=== PATIENT | female | born 1960 | race Caucasian/White ===

== ENCOUNTER 2020-06-13 12:04 | Inpatient (IN) | payer OTHER ==
[2020-06-13 13:26] LABS: BASO % 0.7 % (0-2.0); EOS % 0.1 % (0-4.5); HEMOGLOBIN 13.9 GM/dl (10.7-15.3); LYMPH % 6.9 % (8-40); MCH 31.8 pg (25.7-33.7); MCHC 33.2 g/dl (32.0-36.0); MEAN CELL VOLUME 95.8 fl (80-96); MEAN PLT VOLUME 8.2 fl (7.5-11.1); MONO % 3.3 % (3.8-10.2); PLATELET COUNT 342 K/MM3 (134-434); RBC 4.39 M/mm3 (3.60-5.2); RDW 13.4 % (11.6-15.6); WHITE BLOOD COUNT 11.4 K/mm3 (4.0-10.8)
[2020-06-13 13:32] LABS: ACTIVATED PTT 29.2 SECONDS (25.2-36.5)
[2020-06-13 13:37] LABS: ALBUMIN 4.2 g/dl (3.4-5.0); BILIRUBIN,TOTAL 0.6 mg/dl (0.2-1); CALCIUM 8.9 mg/dl (8.5-10); CREATININE 0.6 mg/dl (0.55-1.3); INR 1.07 (0.82-1.09); POTASSIUM 3.6 mmol/L (3.5-5.1); PROTHROMBIN TIME (PATIENT) 11.9 SEC (10.2-13.0); TOT PROT 6.8 g/dl (6.4-8.2)
[2020-06-13 14:54] LABS: VENOUS BASE EXCESS 0.7 mmol/L (-2-2); VENOUS O2 SATURATION 52.6 % (70-80); VENOUS PCO2 46.4 mmHg (38-52); VENOUS PH 7.373 (7.310-7.410)
[2020-06-13 15:09] LABS: URINE BENZODIAZEPINES NEGATIVE ng/ml (CUTOFF=200)
[2020-06-13 15:10] LABS: METHADONE, UR NEGATIVE ng/ml (CUTOFF=300); OPIATES, URI NEGATIVE ng/ml (CUTOFF=300); PHENCYCLIDINE,URINE NEGATIVE ng/ml (CUTOFF=25)
[2020-06-13 15:11] LABS: COCAINE, UR NEGATIVE ng/ml (CUTOFF=300); URINE AMPHETAMINES NEGATIVE ng/ml (CUTOFF=500); URINE BARBITURATES NEGATIVE ng/ml (CUTOFF=200)
[2020-06-13] MEDS ORDERED: ACETAMINOPHEN 325 MG TABLET (FP) PO ONE (15:15)
[2020-06-13] MEDS ORDERED: ACETAMINOPHEN 325 MG TABLET (FP) ONE (15:17)
[2020-06-13 15:21] LABS: URINE APPEARANCE CLEAR; URINE BILIRUBIN NEGATIVE (NEGATIVE); URINE COLOR YELLOW; URINE GLUCOSE (UA) NEGATIVE (NEGATIVE); URINE KETONE NEGATIVE (NEGATIVE); URINE LEUK ESTERASE NEGATIVE (NEGATIVE); URINE NITRITE NEGATIVE (NEGATIVE); URINE PROTEIN NEGATIVE (NEGATIVE); URINE UROBILINOGEN 0.2 mg/dL (0.2-1.0)
[2020-06-13 19:16] VITALS: BMI 24.4
[2020-06-13] MEDS ORDERED: ACETAMINOPHEN 325 MG TABLET (FP) PO PRN (21:00)
[2020-06-14 08:07] LABS: BASO % 1.7 % (0-2.0); EOS % 0.6 % (0-4.5); HEMATOCRIT 40.3 % (32.4-45.2); HEMOGLOBIN 13.2 GM/dl (10.7-15.3); LYMPH % 18.7 % (8-40); MCH 31.4 pg (25.7-33.7); MCHC 32.8 g/dl (32.0-36.0); MEAN CELL VOLUME 95.7 fl (80-96); MEAN PLT VOLUME 7.7 fl (7.5-11.1); PLATELET COUNT 352 K/MM3 (134-434); RBC 4.21 M/mm3 (3.60-5.2); RDW 13.5 % (11.6-15.6); WHITE BLOOD COUNT 6.2 K/mm3 (4.0-10.8)
[2020-06-14 08:11] LABS: ALBUMIN 3.9 g/dl (3.4-5.0); BILIRUBIN,TOTAL 0.8 mg/dl (0.2-1); CALCIUM 9.2 mg/dl (8.5-10); CREATININE 0.6 mg/dl (0.55-1.3); POTASSIUM 4.4 mmol/L (3.5-5.1); TOT PROT 6.4 g/dl (6.4-8.2)
[2020-06-14 09:48] VITALS: BP 120/82; PULSE 61; TEMP 98.6
== END 2020-06-14 13:38 | disposition home or self-care (01) | DRG 102 ==
LOC: FER 12:04 → FM/S 15:10
PROVIDERS: ADMIT Internal Medicine; ATTEND Nurse Practitioner Acute Care
DX: F07.81 Postconcussional syndrome (principal); G93.41 Metabolic encephalopathy; S00.83XA Contusion of other part of head, initial encounter; R40.4 Transient alteration of awareness; J98.4 Other disorders of lung; N28.1 Cyst of kidney, acquired; J30.9 Allergic rhinitis, unspecified; X58.XXXA Exposure to other specified factors, initial encounter; Y93.9 Activity, unspecified; Y92.9 Unspecified place or not applicable; Z20.822 Contact with and (suspected) exposure to COVID-19
CPT/HCPCS: 36415; 70450-TC; 71250-TC; 72125-TC; 80053; 80061; 80307; 81003; 82550; 82803; 82962; 83735; 84443; 84484; 84703; 85025; 85610; 85730; 86780; 86850; 86900; 86901; 93005; 99291; C9803; U0003